=== PATIENT | male | born 1950 | race Caucasian/White ===

== ENCOUNTER 2023-09-02 09:29 | Outpatient (REF) | payer BC, SELFPAY ==
[2023-09-02 14:48] LABS: Anion Gap 3.4 mmol/L (3-11); BUN 20 mg/dL (7-18); CO2 27.6 mmol/L (21.0-32.0); CREATININE 0.9 mg/dL (0.55-1.02); Calcium 9.4 mg/dL (8.5-10.1); Calculated LDL 95 mg/dL (<100); Chloride 106 mmol/L (98-107); Cholesterol 177 mg/dL (<200); Glucose 112 mg/dL (74-106); HDL Cholesterol 73 mg/dL (40-60); Potassium 4.6 mmol/L (3.5-5.1); Sodium 137 mmol/L (136-145); Triglyceride 45 mg/dL (<150)
== END 2023-09-02 09:30 | disposition home or self-care (01) ==
LOC: NCHCN 09:29
PROVIDERS: Visit Provider Family Medicine
DX: Z13.220 Encounter for screening for lipoid disorders (principal); R73.9 Hyperglycemia, unspecified; Z12.5 Encounter for screening for malignant neoplasm of prostate
CPT/HCPCS: 80048; 80061; 84153

== ENCOUNTER 2023-09-30 14:22 | Outpatient (REF) | payer BC, SELFPAY ==
--- OUTSIDE RECORDS SUMMARY | 2023-09-30 14:25 | XMS_ITS | Patient Health Record ---
Author Name Unknown Organization [facility] Address [address] [place], [place] [id number] Care Team Providers Care General Surgeon Name Role Phone Other, Not at [facility] Primary Care Provider ELLIS Gracia Unavailable [phone] Allergies No Known Allergies Reason For Referral No Information Medications Medication SIG (Take, Route, Fr equency, Duration) Notes Start Date End Date Status Aleve 220 MG 1 tablet Orally every 12 hrs Active Lumigan 0.01 % 1 drop into affected eye in the evening Ophthalmic Once a day Active Combigan 0.2-0.5 % 1 drop into affected eye Ophthalmic Twice a day Not-Feng g Immunizations Vaccine Route Administration Date Status Comme nts Covid-19 Moderna Unknown 02/04/2021 Administered Covid-19 Moderna Unknown 08/19/2021 Administered Covid-19 Moderna Dose 1 Unknown 06/05/2020 Administered Covid-19 Moderna Dose 2 Unknown 07/03/2020 Administered Covid-19 Pfizer BioNTech 12+ yo Unknown 01/13/2022 Admi nistered moderna Tdap Unknown 12/15/2011 Administered Plan Of Treatment No Information Medical (General) History Medical History History ICD Code glaucoma
--- OUTSIDE RECORDS SUMMARY | 2023-09-30 14:25 | XMS_ITS ---
Author Name Unknown Address [address] [place] [phone] Phone Organization Unknown Address [address] [place] [phone] Phone Care Team Providers Care Produce Team Lead Name Role Phone LETICIA Stacy Attending Unavailable EDI Leroy Primary Unavailable Results PSA DIAG PROSTATE SPECIFIC A NTIGEN * - Collect Date/Time: 04/16/2022 07:46 [facility] ID: [id number] [address] [place] [address], [address] LOINC: 2857-1 Test Value Unit Reference Range Code Code System Flag PSA 2.13 ng/mL L=0.00 H=6.50 2857-1 LOINC LIPID PANEL* - Collect Date/ Time: 04/16/2022 07:46 [facility] ID: [id number] [address] [place] [address], [id number] LOINC: Test Value Unit Reference Range Code Code System Flag FASTING STATUS: FASTING CHOLESTEROL 194 mg/dL L=0 H=200 2093-3 LOINC TRIGLYCERIDES 71 mg/dL L=56 H=240 2571-8 LOINC HDL 75 mg/dL L=30 H=74 2085-9 LOINC H non-HDL-C 119 mg/dL L=0 H=160 41370-5 LOINC LDL (CALC) 105 mg/dL L=0 H=130 86802-2 LOINC % HDL 38.7 % Chol/HDL Ratio 2.6 L=0.0 H=4.9 9830-1 LOINC CHD Relative Risk 0.5 x Avg L=0.0 H=1.0 LDL/HDL Ratio 1.4 L=0.0 H=3.5 71286-1 LOINC CHD Relative Risk. 0.4 x Avg L=0.0 H=1.0 COMPREHENSIVE METABOLIC PANE L (CMP) - Collect Date/Time: 04/16/2022 07:46 [facility] ID: [id number] [address] [place], [place], [address] LOINC: 18016-4 Test Value Unit Reference Range Code Code System Flag GLUCOSE 105 mg/dL L=70 H=116 2345-7 LOINC BUN 23 mg/dL L=6 H=25 3094-0 LOINC CREATININE 0.93 mg/dL L=0.67 H=1.17 2160-0 LOINC SODIUM SERUM 137 mmol/L L=136 H=145 2951-2 LOINC POTASSIUM SERUM 4.9 mmol/L L=3.4 H=5.2 2823-3 LOINC CHLORIDE SERUM 102 mmol/L L=96 H=110 2075-0 LOINC CARBON DIOXIDE (CO2) 31 mmol/L L=22 H=34 2028-9 LOINC ANION GAP 4.1 mmol/L 43420-2 LOINC CALCIUM SERUM 9.1 mg/dL L=8.2 H=10.2 81080-3 LOINC BILIRUBIN TOTAL 0.7 mg/dL L=0.0 H=1.3 1975-2 LOINC ALK. PHOS. 56 U/L L=46 H=116 6768-6 LOINC SGOT (AST) 20 U/L L=15 H=37 1920-8 LOINC SGPT (ALT) 16 U/L L=12 H=78 1742-6 LOINC TOTAL PROTEIN 7.2 gm/dL L=6.0 H=8.0 2885-2 LOINC ALBUMIN 3.9 gm/dL L=3.4 H=5.0 1751-7 LOINC AGE 72 years eGFR (non-Afr.Amer.) 80 mL/min 11834-9 LOINC eGFR (Afr-[place]) 97 mL/min 76115-0 LOINC CBC W/ DIFFERENTIAL* - Colle ct Date/Time: 04/16/2022 07:46 [facility] ID: [id number] [address] [place], [place], [address] LOINC: 41806-7 Test Value Unit Reference Range Code Code System Flag WBC 4.44 th/cmm L=5.00 H=10.00 6690-2 LOINC L NEUT % 55.8 % L=40.0 H=80.0 LYMPH % 27.0 % L=10.0 H=50.0 MONO % 13.1 % L=2.0 H=12.0 84588-0 LOINC H EOS % 3.2 % L=0.0 H=8.0 BASO % 0.7 % L=0.0 H=3.0 IG % 0.2 % L=0.0 H=1.1 2514-8 LOINC NRBC % 0.0 % L=0.0 H=0.0 40429-6 LOINC NEUT abs count 2.5 th/cmm L=1.6 H=8.4 751-8 LOINC LYMPH abs count 1.2 th/cmm L=1.5 H=4.0 731-0 LOINC L MONO abs count 0.6 th/cmm L=0.2 H=1.0 742-7 LOINC EOS abs count 0.1 th/cmm L=0.0 H=0.5 711-2 LOINC BASO abs count 0.0 th/cmm L=0.0 H=0.2 704-7 LOINC IG abs count 0.0 th/cmm L=0.0 H=0.1 39606-6 LOINC NRBC abs count 0.0 mil/cmm L=0.0 H=0.0 63682-6 LOINC RBC 4.49 mil/cmm L=4.30 H=6.20 789-8 LOINC HEMOGLOBIN 14.5 gm/dL L=13.0 H=17.0 718-7 LOINC HEMATOCRIT 44 % L=45 H=52 4544-3 LOINC L MCV 98 fL L=82 H=92 787-2 LOINC H MCH 32.3 pg L=27.0 H=31.0 785-6 LOINC H MCHC 33.1 % L=32.0 H=36.0 786-4 LOINC RDW-SD 50.5 fL L=39.0 H=49.0 788-0 LOINC H PLATELET COUNT 184 th/cmm L=150 H=450 777-3 LOINC Social History Type Status Start Date End Date Code Code Syst em Smoking History Former smoker 8066934 SNOMED CT Sex Male Assessment You had the following problems: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 If you have left the hospital and have any questions, please contact your primary care physician. Reason For Referral No Data Found Problems Problem Start Date Resolved Date Status Code Code System PYOGEN ARTHRITIS-L LEG active SNOMED-CT LOOSENING OF TOTAL KNEE REPLACEMENT active 547577083 SNOMED-CT Allergies and Adverse Reactions Allergy Substance Reaction Severity Start Date Concern Status Co de Code System No Known Allergies Active 304035736 SNO MED-CT Plan of Treatment LAB DRAW 15MIN 04/16/2022 EXPOSURE 02/16/2021 LAB DRAW 15MIN 03/11/2021 Encounters Encounter Diagnosis Start Date Code Code Sys tem Psychosexual counseling 04/16/2022 309836391 SNOM ED-CT Personal Care Team Section Performer Name Performer Role Active Date Inactive Da chiara
--- OUTSIDE RECORDS SUMMARY | 2023-09-30 14:25 | XMS_ITS ---
Author Name Unknown Address [address] [place] [phone] Phone Organization Unknown Address [address] [place] [address] [phone] Phone Care Team Providers Care Ferryboat Pilot Name Role Phone EDI Leroy Attending Unavailable Results PSA SCREENING ANTIGEN TOTAL* - Collect Date/Time: 03/11/2021 08:01 [facility] ID: [id number] [address] [place] [address], [phone] LOINC: 2857-1 Test Value Unit Reference Range Code Code System Flag PSA 3.07 ng/mL L=0.00 H=6.50 2857-1 LOINC CBC W/ DIFFERENTIAL* - Colle ct Date/Time: 03/11/2021 08:01 [facility] ID: [id number] [address] [place] [address] LOINC: 06376-8 Test Value Unit Reference Range Code Code System Flag WBC 4.06 th/cmm L=5.00 H=10.00 6690-2 LOINC L NEUT % 49.7 % L=40.0 H=80.0 LYMPH % 29.6 % L=10.0 H=50.0 MONO % 15.3 % L=2.0 H=12.0 45259-2 LOINC H EOS % 4.7 % L=0.0 H=8.0 BASO % 0.5 % L=0.0 H=3.0 IG % 0.2 % L=0.0 H=1.1 2634-8 LOINC NRBC % 0.0 % L=0.0 H=0.0 72789-6 LOINC NEUT abs count 2.0 th/cmm L=1.6 H=8.4 751-8 LOINC LYMPH abs count 1.2 th/cmm L=1.5 H=4.0 731-0 LOINC L MONO abs count 0.6 th/cmm L=0.2 H=1.0 742-7 LOINC EOS abs count 0.2 th/cmm L=0.0 H=0.5 711-2 LOINC BASO abs count 0.0 th/cmm L=0.0 H=0.2 704-7 LOINC IG abs count 0.0 th/cmm L=0.0 H=0.1 89809-9 LOINC NRBC abs count 0.0 mil/cmm L=0.0 H=0.0 95362-3 LOINC RBC 4.55 mil/cmm L=4.30 H=6.20 789-8 LOINC HEMOGLOBIN 14.6 gm/dL L=13.0 H=17.0 718-7 LOINC HEMATOCRIT 45 % L=45 H=52 4544-3 LOINC MCV 98 fL L=82 H=92 787-2 LOINC H MCH 32.1 pg L=27.0 H=31.0 785-6 LOINC H MCHC 32.8 % L=32.0 H=36.0 786-4 LOINC RDW-SD 52.5 fL L=39.0 H=49.0 788-0 LOINC H PLATELET COUNT 165 th/cmm L=150 H=450 777-3 LOINC COMPREHENSIVE METABOLIC PANE L (CMP) - Collect Date/Time: 03/11/2021 08:01 [facility] ID: [id number] [address] [place], [place], [address] LOINC: 84557-1 Test Value Unit Reference Range Code Code System Flag GLUCOSE 107 mg/dL L=70 H=116 2345-7 LOINC BUN 22 mg/dL L=6 H=25 3094-0 LOINC CREATININE 0.93 mg/dL L=0.67 H=1.17 2160-0 LOINC SODIUM SERUM 143 mmol/L L=136 H=145 2951-2 LOINC POTASSIUM SERUM 5.0 mmol/L L=3.4 H=5.2 2823-3 LOINC CHLORIDE SERUM 105 mmol/L L=96 H=110 2075-0 LOINC CARBON DIOXIDE (CO2) 31 mmol/L L=22 H=34 2028-9 LOINC ANION GAP 7.4 mmol/L 11960-8 LOINC CALCIUM SERUM 9.1 mg/dL L=8.2 H=10.2 40854-7 LOINC BILIRUBIN TOTAL 0.9 mg/dL L=0.0 H=1.3 1975-2 LOINC ALK. PHOS. 57 U/L L=46 H=116 6768-6 LOINC SGOT (AST) 18 U/L L=15 H=37 1920-8 LOINC SGPT (ALT) 21 U/L L=12 H=78 1742-6 LOINC TOTAL PROTEIN 6.9 gm/dL L=6.0 H=8.0 2885-2 LOINC ALBUMIN 4.0 gm/dL L=3.4 H=5.0 1751-7 LOINC AGE 70 years eGFR (non-Afr.Amer.) 80 mL/min 00583-7 LOINC eGFR (Afr-Bahamian) 97 mL/min 16175-2 LOINC LIPID PANEL* - Collect Date/ Time: 03/11/2021 08:01 [facility] ID: [id number] [address] [place], [place], [id number] LOINC: Test Value Unit Reference Range Code Code System Flag FASTING STATUS: FASTING CHOLESTEROL 183 mg/dL L=0 H=200 2093-3 LOINC TRIGLYCERIDES 52 mg/dL L=56 H=240 2571-8 LOINC L HDL 72 mg/dL L=30 H=74 2085-9 LOINC non-HDL-C 111 mg/dL L=0 H=160 95326-8 LOINC LDL (CALC) 101 mg/dL L=0 H=130 28463-1 LOINC % HDL 39.3 % Chol/HDL Ratio 2.5 L=0.0 H=4.9 9830-1 LOINC CHD Relative Risk 0.5 x Avg L=0.0 H=1.0 LDL/HDL Ratio 1.4 L=0.0 H=3.5 42201-9 [facility] CHD Relative Risk. 0.4 x Avg L=0.0 H=1.0 Social History Type Status Start Date End Date Code Code Syst em Smoking History Former smoker 9668519 SNOMED CT Sex Male Assessment You had [...] SNOMED-CT LOOSENING OF TOTAL KNEE REPLACEMENT active 822312796 SNOMED-CT Allergies and Adverse Reactions Allergy Substance Reaction Severity Start Date Concern Status Co de Code System No Known Allergies Active 889225577 SNO MED-CT Plan of Treatment LAB DRAW 15MIN 04/16/2022 EXPOSURE 02/16/2021 LAB DRAW 15MIN 03/11/2021 Encounters Encounter Diagnosis Start Date Code Code Sys tem Impaired fasting glycemia 03/11/2021 693240807 SN OMED-CT Personal Care Team Section Performer Name Performer Role Active Date Inactive Da chiara
[2023-09-30 15:10] LABS: Hemoglobin A1C 5.9 % (<5.7)
[2023-10-03 10:47] LABS: PSA, Screening 1.4 ng/mL (<=6.5)
== END 2023-09-30 14:23 | disposition home or self-care (01) ==
LOC: NCHCN 14:22
PROVIDERS: Visit Provider Family Medicine
DX: R73.03 Prediabetes (principal); R97.20 Elevated prostate specific antigen [PSA]; Z12.5 Encounter for screening for malignant neoplasm of prostate
CPT/HCPCS: 84153; 83036

== ENCOUNTER 2025-01-29 15:07 | Outpatient (REF) | payer MEDICARE, SELFPAY ==
[2025-01-30 18:13] LABS: PSA, Screening 0.1 ng/mL (<=6.5)
== END 2025-01-29 15:08 | disposition home or self-care (01) ==
LOC: NCHCN 15:07
PROVIDERS: Visit Provider Family Medicine
DX: Z12.5 Encounter for screening for malignant neoplasm of prostate (principal)
CPT/HCPCS: 84153